=== PATIENT | female | born 1940 | race Caucasian/White ===

== ENCOUNTER → 2021-05-15 11:21 | Outpatient (BNVA) | payer OTHER, SELFPAY | PROVIDERS: PCP Family Medicine; Visit Provider Specialist | DX: G54.1 Lumbosacral plexus disorders (principal); Y65.8 Other specified misadventures during surgical and medical care; R26.9 Unspecified abnormalities of gait and mobility; Z87.891 Personal history of nicotine dependence | CPT/HCPCS: 99204 ==